=== PATIENT | male | born 1960 | race Caucasian/White ===

== ENCOUNTER 2016-03-24 10:38 | Inpatient (IN) | payer MEDICARE, MEDICAID ==
[2016-03-24] MEDS ORDERED: ONDANSETRON 4 MG/2 ML VIAL IVP STA (11:04)
[2016-03-24] MEDS ORDERED: SODIUM CHLORIDE 0.9% 500 ML IV STA (11:04)
[2016-03-24] MEDS ORDERED: SODIUM CHLORIDE 0.9% 1,000 ML IV STA ×2 (11:04)
--- NOTE | 2016-03-24 11:24 | ED ---
General Adult HPI - General Source: patient, RN notes reviewed, old records reviewed Mode of arrival: ambulatory Limitations: no limitations <Amadou Guaman - Last Filed: 03/24/16 13:04> <Wilfred Morse - Last Filed: 03/24/16 18:31> - General Chief complaint: Psychiatric Symptoms Stated complaint: Weakness/Numbness rt side Time Seen by Provider: 03/24/16 10:43 - History of Present Illness Initial comments: This is a 55-year-old male coming in for evaluation. Patient brought in for evaluation of seeing things. Patient having delusions. He states he sees a CAT sometimes threes at home. Patient denies taking alcohol, denies drug abuse , denies any other complaints (Amadou Guaman) - Related Data Home Medications Medication Instructions Recorded Confirmed Albuterol Sulfate [Proair Hfa] 2 puff INHALATION RT-Q4H PRN 03/24/16 03/24/16 Fluticasone Nasal [place] [Flonase 1 spray EA NOSTRIL DAILY PRN 03/24/16 03/24/16 Nasal [place]] HYDROcodone/APAP 7.5-325MG [[place] 1 tab PO Q4H PRN 03/24/16 03/24/16 7.5-325] Ibuprofen [Motrin] 800 mg PO TID PRN 03/24/16 03/24/16 QUEtiapine [SEROquel] 100 mg PO BID 03/24/16 03/24/16 Ranitidine HCl [Zantac] 150 mg PO BID 03/24/16 03/24/16 clonazePAM [KlonoPIN] 0.5 mg PO BID PRN 03/24/16 03/24/16 clonazePAM [KlonoPIN] 1 mg PO BID 03/24/16 03/24/16 lamoTRIgine [LaMICtal] 150 mg PO BID 03/24/16 03/24/16 Allergies Allergy/AdvReac Type Severity Reaction Status Date / Time No Known Allergies Allergy Verified 03/24/16 10:44 Review of Systems ROS Other: All systems not noted in ROS Statement are negative. <Amadou Guaman - Last Filed: 03/24/16 13:04> ROS Other: All systems not noted in ROS Statement are negative. <Wilfred Morse - Last Filed: 03/24/16 18:31> ROS Statement: Those systems with pertinent positive or pertinent negative responses have been documented in the HPI. Past Medical History Past Medical History: No Reported History History of Any Multi-Drug Resistant Organisms: None Reported Past Surgical History: No Surgical Hx Reported, Orthopedic Surgery Additional Past Surgical History / Comment(s): elbow BL Past Psychological History: Depression, PTSD Smoking Status: Current every day smoker Past Alcohol Use History: None Reported Past Drug Use History: None Reported <Amadou Guaman - Last Filed: 03/24/16 13:04> General Exam Limitations: no limitations General appearance: alert, in no apparent distress, appears intoxicated Head exam: Present: atraumatic, normocephalic, normal inspection Eye exam: Present: normal appearance, PERRL, EOMI. Absent: scleral icterus, conjunctival injection, periorbital swelling ENT exam: Present: normal exam, mucous membranes moist Neck exam: Present: normal inspection. Absent: tenderness, meningismus, lymphadenopathy Respiratory exam: Present: normal lung sounds bilaterally. Absent: respiratory distress, wheezes, rales, rhonchi, stridor Cardiovascular Exam: Present: regular rate, normal rhythm, normal heart sounds. Absent: systolic murmur, diastolic murmur, rubs, gallop, clicks GI/Abdominal exam: Present: soft, normal bowel sounds. Absent: distended, tenderness, guarding, rebound, rigid Extremities exam: Present: normal inspection, full ROM, normal capillary refill. Absent: tenderness, pedal edema, joint swelling, calf tenderness Back exam: Present: normal inspection Neurological exam: Present: alert, oriented X3, CN II-XII intact Psychiatric exam: Present: normal affect, normal mood Skin exam: Present: warm, dry, intact, normal color. Absent: rash <Amadou Guaman - Last Filed: 03/24/16 13:04> Course <Amadou Guaman - Last Filed: 03/24/16 13:04> <Wilfred Morse - Last Filed: 03/24/16 18:31> Vital Signs 03/24/16 03/24/16 10:44 12:57 Temperature 97.3 F L Pulse Rate 96 90 Respiratory 17 18 Rate Blood Pressure 133/88 153/68 O2 Sat by Pulse 95 95 Oximetry - Reevaluation(s) Reevaluation #1: 03/24/16 13:04 Patient is intoxicated (Amadou Guaman) EKG Findings - EKG Comments: EKG Findings:: EKG shows sinus tachycardia rate 101, IL 170, QRS, QTC 443 <Amadou Guaman - Last Filed: 03/24/16 13:04> Medical Decision Making - Lab Data Result diagrams: 03/24/16 11:15 03/24/16 11:15 <Amadou Guaman - Last Filed: 03/24/16 13:04> - Lab Data Result diagrams: 03/24/16 11:15 03/24/16 11:15 <Wilfred Morse - Last Filed: 03/24/16 18:31> - Medical Decision Making The patient was evaluated by psychiatric service she'll be admitted for inpatient treatment for depression NOS (Wilfred Morse) - Lab Data Lab Results 03/24/16 03/24/16 03/24/16 Range/Units 11:15 11:15 11:15 WBC 4.6 (3.8-10.6) k/uL RBC 3.48 L (4.30-5.90) m/uL Hgb 12.3 L (13.0-17.5) gm/dL Hct 36.5 L (39.0-53.0) % MCV 104.9 H (80.0-100.0) fL MCH 35.3 H (25.0-35.0) pg MCHC 33.6 (31.0-37.0) g/dL RDW 13.8 (11.5-15.5) % Plt Count 172 (150-450) k/uL Neutrophils % 61 % Lymphocytes % 27 % Monocytes % 9 % Eosinophils % 1 % Basophils % 1 % Neutrophils # 2.8 (1.3-7.7) k/uL Lymphocytes # 1.2 (1.0-4.8) k/uL Monocytes # 0.4 (0-1.0) k/uL Eosinophils # 0.1 (0-0.7) k/uL Basophils # 0.1 (0-0.2) k/uL Macrocytosis Slight PT (9.0-12.0) sec INR (<1.1) APTT (22.0-30.0) sec Sodium 140 (137-145) mmol/L Potassium 4.2 (3.5-5.1) mmol/L Chloride 102 (98-107) mmol/L Carbon Dioxide 23 (22-30) mmol/L Anion Gap 15 mmol/L BUN 10 (9-20) mg/dL Creatinine 1.08 (0.66-1.25) mg/dL Est GFR (MDRD) Af Amer >60 (>60 ml/min/1.73 sqM) Est GFR (MDRD) Non-Af >60 (>60 ml/min/1.73 sqM) Glucose 104 H (74-99) mg/dL Calcium 9.2 (8.4-10.2) mg/dL Phosphorus 3.3 (2.5-4.5) mg/dL Magnesium 1.5 L (1.6-2.3) mg/dL Total Bilirubin 0.9 (0.2-1.3) mg/dL AST 87 H (17-59) U/L ALT 61 (21-72) U/L Alkaline Phosphatase 108 (38-126) U/L Total Creatine Kinase 262 H (55-170) U/L CK-MB (CK-2) 2.7 H* (0.0-2.4) ng/mL CK-MB (CK-2) Rel Index 1.0 Troponin I <0.012 (0.000-0.034) ng/mL Total Protein 7.5 (6.3-8.2) g/dL Albumin 4.0 (3.5-5.0) g/dL Urine Color Urine Appearance (Clear) Urine pH (5.0-8.0) Ur Specific [place] (1.001-1.035) Urine Protein (Negative) Urine Glucose (UA) (Negative) Urine Ketones (Negative) Urine Blood (Negative) Urine Nitrate (Negative) Urine Bilirubin (Negative) Urine Urobilinogen (<2.0) mg/dL Ur Leukocyte Esterase (Negative) Urine Opiates Screen (NotDetected) Ur Oxycodone Screen (NotDetected) Urine Methadone Screen (NotDetected) Ur Propoxyphene Screen (NotDetected) Ur Barbiturates Screen (NotDetected) U Tricyclic Antidepress (NotDetected) Ur Phencyclidine Scrn (NotDetected) Ur Amphetamines Screen (NotDetected) U Methamphetamines Scrn (NotDetected) U Benzodiazepines Scrn (NotDetected) Urine Cocaine Screen (NotDetected) U Marijuana (THC) Screen (NotDetected) Serum Alcohol 168 mg/dL 03/24/16 03/24/16 03/24/16 Range/Units 11:15 14:15 14:15 WBC (3.8-10.6) k/uL RBC (4.30-5.90) m/uL Hgb (13.0-17.5) gm/dL Hct (39.0-53.0) % MCV (80.0-100.0) fL MCH (25.0-35.0) pg MCHC (31.0-37.0) g/dL RDW (11.5-15.5) % Plt Count (150-450) k/uL Neutrophils % % Lymphocytes % % Monocytes % % Eosinophils % % Basophils % % Neutrophils # (1.3-7.7) k/uL Lymphocytes # (1.0-4.8) k/uL Monocytes # (0-1.0) k/uL Eosinophils # (0-0.7) k/uL Basophils # (0-0.2) k/uL Macrocytosis PT 11.9 (9.0-12.0) sec INR 1.2 (<1.1) APTT 26.7 (22.0-30.0) sec Sodium (137-145) mmol/L Potassium (3.5-5.1) mmol/L Chloride (98-107) mmol/L Carbon Dioxide (22-30) mmol/L Anion Gap mmol/L BUN (9-20) mg/dL Creatinine (0.66-1.25) mg/dL Est GFR (MDRD) Af Amer (>60 ml/min/1.73 sqM) Est GFR (MDRD) Non-Af (>60 ml/min/1.73 sqM) Glucose (74-99) mg/dL Calcium (8.4-10.2) mg/dL Phosphorus (2.5-4.5) mg/dL Magnesium (1.6-2.3) mg/dL Total Bilirubin (0.2-1.3) mg/dL AST (17-59) U/L ALT (21-72) U/L Alkaline Phosphatase (38-126) U/L Total Creatine Kinase (55-170) U/L CK-MB (CK-2) (0.0-2.4) ng/mL CK-MB (CK-2) Rel Index Troponin I (0.000-0.034) ng/mL Total Protein (6.3-8.2) g/dL Albumin (3.5-5.0) g/dL Urine Color Yellow Urine Appearance Clear (Clear) Urine pH 5.0 (5.0-8.0) Ur Specific [place] 1.005 (1.001-1.035) Urine Protein Negative (Negative) Urine Glucose (UA) Negative (Negative) Urine Ketones Negative (Negative) Urine Blood Negative (Negative) Urine Nitrate Negative (Negative) Urine Bilirubin Negative (Negative) Urine Urobilinogen <2.0 (<2.0) mg/dL Ur Leukocyte Esterase Negative (Negative) Urine Opiates Screen Detected H (NotDetected) Ur Oxycodone Screen Not Detected (NotDetected) Urine Methadone Screen Not Detected (NotDetected) Ur Propoxyphene Screen Not Detected (NotDetected) Ur Barbiturates Screen Not Detected (NotDetected) U Tricyclic Antidepress Detected H (NotDetected) Ur Phencyclidine Scrn Not Detected (NotDetected) Ur Amphetamines Screen Not Detected (NotDetected) U Methamphetamines Scrn Not Detected (NotDetected) U Benzodiazepines Scrn Not Detected (NotDetected) Urine Cocaine Screen Not Detected (NotDetected) U Marijuana (THC) Screen Not Detected (NotDetected) Serum Alcohol mg/dL Disposition <Amadou Guaman - Last Filed: 03/24/16 13:04> <Wilfred Morse - Last Filed: 03/24/16 18:31> Clinical Impression: Depression Disposition: TRANSFER TO PSYCH HOSP/UNIT Condition: Stable
[2016-03-24 11:37] LABS: Basophils # (A) 0.1 k/uL (0-0.2); Basophils % (A) 1 %; CH 35.5; Eosinophils # (A) 0.1 k/uL (0-0.7); Eosinophils % (A) 1 %; HCT 36.5 % (39.0-53.0); HDW 2.36; HGB 12.3 gm/dL (13.0-17.5); Luc # (Auto) 0.09; Luc % (Auto) 2; Lymphocytes # (A) 1.2 k/uL (1.0-4.8); Lymphocytes % (A) 27 %; MCH 35.3 pg (25.0-35.0); MCHC 33.6 g/dL (31.0-37.0); MCV 104.9 fL (80.0-100.0); Macrocytosis Slight; Mean Platelet Volume 7.9; Monocytes # (A) 0.4 k/uL (0-1.0); Monocytes % (A) 9 %; Neutrophils # (A) 2.8 k/uL (1.3-7.7); Neutrophils % (A) 61 %; RBC 3.48 m/uL (4.30-5.90); RDW 13.8 % (11.5-15.5); WBC 4.6 k/uL (3.8-10.6); WBC (Perox) 4.63
--- NOTE | 2016-03-24 11:40 | CT ---
EXAMINATION TYPE: CT brain wo con DATE OF EXAM: 03/24/2016 11:35 AM COMPARISON: 09/05/2009 HISTORY: Weakness CT DLP: 1029.90 mGycm Automated exposure control for dose reduction was used. FINDINGS: There is no acute intracranial hemorrhage, mass effect, or midline shift identified. The ventricles and sulci are consistent with [id number] degenerative change. Periventricular low attenuation i s nonspecific but most typical remote microvascular ischemia. Changes of chronic sinusitis noted. IMPRESSION: No acute intracranial hemorrhage, mass effect, or midline shift is seen.
[2016-03-24 11:41] LABS: INR 1.2 (<1.1)
[2016-03-24 11:42] LABS: Partial Thromboplastin Time 26.7 sec (22.0-30.0); Prothrombin Time 11.9 sec (9.0-12.0)
[2016-03-24 11:43] LABS: ALT 61 U/L (21-72); AST 87 U/L (17-59); Alkaline Phosphatase 108 U/L (38-126); Anion Gap 15 mmol/L; Blood Urea Nitrogen 10 mg/dL (9-20); Calcium 9.2 mg/dL (8.4-10.2); Carbon Dioxide 23 mmol/L (22-30); Chloride 102 mmol/L (98-107); Glucose 104 mg/dL (74-99); Magnesium 1.5 mg/dL (1.6-2.3); Non-African American GFR(MDRD) >60 (>60 ml/min/1.73 sqM); Phosphorous 3.3 mg/dL (2.5-4.5); Potassium 4.2 mmol/L (3.5-5.1); Sodium 140 mmol/L (137-145); Total Bilirubin 0.9 mg/dL (0.2-1.3); Total Protein 7.5 g/dL (6.3-8.2)
[2016-03-24 11:46] LABS: Alcohol 168 mg/dL
[2016-03-24 11:50] LABS: Creatine Kinase 262 U/L (55-170)
[2016-03-24] MEDS ORDERED: FOLIC ACID 1 MG TAB PO STA (12:01)
[2016-03-24] MEDS ORDERED: THIAMINE 100 MG/ML 2 ML VIAL IVPB STA (12:01)
[2016-03-24] MEDS ORDERED: MAGNESIUM OXIDE 400 MG TAB PO STA (12:01)
[2016-03-24 12:03] LABS: Troponin I <0.012 ng/mL (0.000-0.034)
[2016-03-24 12:07] LABS: Creatine Kinase MB 2.7 ng/mL (0.0-2.4)
[2016-03-24 14:38] LABS: Appearance,Urine Clear (Clear); Bilirubin,Urine Negative (Negative); Glucose,Urine (UA) Negative (Negative); Ketones,Urine Negative (Negative); Leukocyte Esterase,Urine Negative (Negative); Nitrite,Urine Negative (Negative); Protein,Urine Negative (Negative); Specific Gravity,Urine 1.005 (1.001-1.035); UA Billing (MACRO vs. MICRO) CHEM; Urobilinogen,Urine <2.0 mg/dL (<2.0)
[2016-03-24] MEDS ORDERED: NICOTINE 21MG/24HR PATCH TRANSDERM STA (15:06)
[2016-03-24] MEDS ORDERED: clonazePAM 1 MG TAB PO STA (15:06)
[2016-03-24] MEDS ORDERED: HYDROcodone/APAP 7.5-325MG 1 EACH TAB PO PRN (19:08)
[2016-03-24] MEDS ORDERED: IBUPROFEN 800 MG TAB PO PRN (19:08)
[2016-03-24] MEDS ORDERED: ZIPRASIDONE 20 MG VIAL IM PRN (19:21)
[2016-03-24] MEDS ORDERED: ACETAMINOPHEN TAB 325 MG TAB PO PRN (19:21)
[2016-03-24] MEDS ORDERED: MAGNESIUM HYDROXIDE 2,400 MG/10 ML CUP PO PRN (19:21)
[2016-03-24] MEDS ORDERED: LORazepam 2 MG/ML SYRINGE IM PRN (19:32)
[2016-03-24] MEDS: FAMOTIDINE 20 MG TAB PO SCH (21:17)
[2016-03-24] MEDS: LORazepam 1 MG TAB PO PRN (21:17)
[2016-03-24] MEDS: lamoTRIgine 100 MG TAB PO SCH (21:19)
[2016-03-25] MEDS: LORazepam 1 MG TAB PO PRN ×2 (06:18→11:09)
[2016-03-25] MEDS ORDERED: ONDANSETRON ODT 4 MG TAB PO PRN (09:02)
[2016-03-25] MEDS: GABAPENTIN 100 MG CAP PO SCH ×4 (09:31→22:01)
[2016-03-25] MEDS: lamoTRIgine 100 MG TAB PO SCH ×3 (09:31→21:59)
[2016-03-25] MEDS: NICOTINE 21MG/24HR PATCH TRANSDERM SCH ×2 (09:31→10:57)
[2016-03-25] MEDS: FAMOTIDINE 20 MG TAB PO SCH ×3 (09:31→21:59)
[2016-03-25] MEDS: ALBUTEROL INHALER 60 PUFF/8 GM INHALER INHALATION PRN ×2 (10:57→20:57)
[2016-03-25] MEDS: THIAMINE 100 MG TAB PO SCH (13:10)
[2016-03-25] MEDS ORDERED: cloNIDine HCL 0.1 MG TAB PO PRN (13:39)
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
[2016-03-25] MEDS: clonazePAM 0.5 MG TAB PO SCH (22:00)
[2016-03-25] MEDS: MIRTAZAPINE 15 MG TAB PO SCH (22:01)
[2016-03-26] MEDS: ALBUTEROL INHALER 60 PUFF/8 GM INHALER INHALATION PRN ×3 (09:20→20:51)
[2016-03-26] MEDS: GABAPENTIN 100 MG CAP PO SCH (09:54)
[2016-03-26] MEDS: clonazePAM 0.5 MG TAB PO SCH ×2 (09:54→20:49)
[2016-03-26] MEDS: FAMOTIDINE 20 MG TAB PO SCH ×2 (09:54→20:50)
[2016-03-26] MEDS: lamoTRIgine 100 MG TAB PO SCH ×2 (09:54→20:50)
[2016-03-26] MEDS: NICOTINE 21MG/24HR PATCH TRANSDERM SCH (09:54)
[2016-03-26] MEDS: cloNIDine HCL 0.1 MG TAB PO PRN ×2 (09:55→20:51)
[2016-03-26] MEDS: FLUTICASONE 50MCG/SPRAY NASAL 16GM EA NOSTRIL PRN (10:05)
[2016-03-26] MEDS: THIAMINE 100 MG TAB PO SCH (12:20)
[2016-03-26] MEDS: LORazepam 1 MG TAB PO PRN ×2 (12:21→16:22)
--- NOTE | 2016-03-26 13:02 | P.PN ---
Subjective SUBJECTIVE: Patient endorses:high anxiety,some confusion ,difficulty sustaining attention , does not seem to listen when spoken to directly as I have to repeat myself more than once,reports "ALWAYS HYPER AND I CAN NOT SEAT STILL FOR LONG TIME",he stated that he was misusing RX for Klonopin and Hydrocodone and "I never told my Doctor that I was drinking",still endorsing withdrawal symptoms:psychomotor agitation,tremor ,increase heart rate,tactile hallucinations He reports that he slept with Remeron and his appetite is improving,denies any manic features but he said "I am easy agitated ,I do not want to be treated as a kid"discussed with him his misperception and cognitive distortion MENTAL STATUS EXAM: Patient is casually dressed ,grooming is adequate ,restless ,speech is rapid , at times circumstantial but easy to redirect ,alert and oriented to place , person but to today date ,endorses some tactile hallucination ,denies visual or auditory hallucination ,some paranoia and irritability ,endorses depression and anxiety but denies any current suicidal or homicidal ideation ASSESSMENT:Patient is still going through withdrawal symptom ,has anxiety , depression and irritability PLAN:1) Continue detox. protocol ,increase Neurontin 2) Continue Remeron ,will consider adding low dose of Risperdal if tactile hallucination will not subside in 24 hours 3) Encourage participation in milieu and groups therapy Objective - Vital Signs Vital signs: Vital Signs Temp 97.9 F 03/26/16 06:44 Pulse 106 H 03/26/16 12:23 Resp 20 03/26/16 12:23 BP 139/99 03/26/16 12:23 Pulse Ox 97 03/24/16 18:31 - Labs CBC & Chem 7: 03/24/16 11:15 03/24/16 11:15
[2016-03-26] MEDS ORDERED: HYDROcodone/APAP 7.5-325MG 1 EACH TAB PO PRN (13:04)
--- NOTE | 2016-03-26 14:02 | P.CONS ---
History of Present Illness - Reason for Consult Consult date: 03/25/16 Medical management - History of Present Illness This is a 55-year-old male. His primary care physician is Dr. Sheppard. He has a past history of seasonal ALLERGIES, possible asthma, depression, PTSD , tobacco use and dependence. He gives history that he has been drinking too much and it was out of control and he came in here so that he could stop drinking. He states he has been in [facility] along time ago for alcohol abuse and was sober for a number of years. He states his son when his son wasn't 18 from a boating accident and he initially started smoking at that time because he wasn't drinking but eventually returned to drinking. He states he drinks 8 beers per day plus a shot of liquor. He denies any street drug use. He denies history of hypertension but blood pressures have been running high for which Catapres was added this morning and will be increased. Patient presented to [facility] emergency center for psychiatric evaluation. He apparently was seen things and having delusions. His initial serum alcohol level was 168. Urine drug screen was positive for opiates and tricyclic antidepressants. Patient has been admitted to the mental health unit. Review of Systems All systems: negative Constitutional: Denies chills, Denies fever Eyes: denies blurred vision, denies pain Ears, nose, mouth and throat: Denies headache, Denies sore throat Cardiovascular: Denies chest pain, Denies shortness of breath Respiratory: Denies cough Gastrointestinal: Denies abdominal pain, Denies diarrhea, Denies nausea, Denies vomiting Musculoskeletal: Denies myalgias Integumentary: Denies pruritus, Denies rash Neurological: Denies numbness, Denies weakness Psychiatric: Reports depression, Reports hopelessness, Denies anxiety Endocrine: Denies fatigue, Denies weight change Past Medical History Past Medical History: No Reported History Additional Past Medical History / Comment(s): Seasonal ALLERGIES, possible asthma or COPD History of Any Multi-Drug Resistant Organisms: None Reported Past Surgical History: No Surgical Hx Reported, Orthopedic Surgery Additional Past Surgical History / Comment(s): elbow BL Past Psychological History: Depression, PTSD Smoking Status: Current every day smoker Past Alcohol Use History: None Reported Additional Past Alcohol Use History / Comment(s): Patient is a smoker of three- quarter pack per day. He drinks 8 beers plus a shot of liquor per day. He denies any medical marijuana use. He did use marijuana and quit 10 years ago. He denies any other street drug use. Past Drug Use History: None Reported - Past Family History Father Additional Family Medical History / Comment(s): Father is 81 years of age with history of 4 vessel CABG, colon cancer and another type of cancer he does not know the name Mother Additional Family Medical History / Comment(s): Mother at age 38 from breast cancer. Brother(s) Additional Family Medical History / Comment(s): He has 4 brothers with no major medical problems. Patient does not have any sisters. Son(s) Additional Family Medical History / Comment(s): Patient had 2 sons and one at age 18 from a boating accident. Second son is age 29 with no major medical problems. Patient has one daughter age 31 with no major medical problems. Medications and Allergies Home Medications Medication Instructions Recorded Confirmed Type Albuterol Sulfate [Proair Hfa] 2 puff INHALATION RT-Q4H PRN 03/24/16 03/24/16 History Fluticasone Nasal [place] [Flonase 1 spray EA NOSTRIL DAILY PRN 03/24/16 03/24/16 History Nasal [place]] HYDROcodone/APAP 7.5-325MG [[place] 1 tab PO Q4H PRN 03/24/16 03/24/16 History 7.5-325] Ibuprofen [Motrin] 800 mg PO TID PRN 03/24/16 03/24/16 History QUEtiapine [SEROquel] 100 mg PO BID 03/24/16 03/24/16 History Ranitidine HCl [Zantac] 150 mg PO BID 03/24/16 03/24/16 History clonazePAM [KlonoPIN] 0.5 mg PO BID PRN 03/24/16 03/24/16 History clonazePAM [KlonoPIN] 1 mg PO BID 03/24/16 03/24/16 History lamoTRIgine [LaMICtal] 150 mg PO BID 03/24/16 03/24/16 History Allergies Allergy/AdvReac Type Severity Reaction Status Date / Time No Known Allergies Allergy Verified 03/24/16 10:44 Physical Exam Vitals: Vital Signs Temp Pulse Pulse Resp BP BP Pulse Ox 03/25/16 11:15 108 H 16 171/95 03/25/16 07:16 97 16 189/90 03/25/16 06:34 98.3 F 96 16 192/94 03/24/16 19:02 97.9 F 98 18 154/83 03/24/16 18:31 99 F 89 18 150/60 97 Intake and Output 03/24/16 03/25/16 03/25/16 22:59 06:59 14:59 Other: Weight 85.275 kg Gen: This is a 55-year-old male. He is cooperative and appears to be in no acute distress. HEENT: Head is atraumatic, normocephalic. Pupils equal, round. Sclerae is anicteric. NECK: Supple. No JVD. No lymphadenopathy. No thyromegaly. LUNGS: Clear to auscultation. No wheezes or rhonchi. No intercostal retractions. HEART: Regular rate and rhythm. No murmur. ABDOMEN: Soft. Bowel sounds are present. No masses. No tenderness. EXTREMITIES: No pedal edema. No calf tenderness. NEUROLOGICAL: Patient is awake, alert and oriented x3. Cranial nerves 2 through 12 are grossly intact. Results CBC & Chem 7: 03/24/16 11:15 03/24/16 11:15 Assessment and Plan Plan: 1. Depression with alcohol abuse. Patient admitted to the mental health unit. Continue current plan of care. 2. Tobacco use and dependence. Continue nicotine patch. 3. History of possible asthma or possible COPD. Continue albuterol inhaler. 4. Seasonal ALLERGIES. Continue Flonase. 5. Hypertension most likely due to alcohol withdrawal. Catapres increased to 0.2 mg 3 times daily.. Impression and plan of care have been directed as dictated by the signing physician. Marie Lamas nurse practitioner acting as scribe for signing physician. Time with Patient: Greater than 30
[2016-03-26] MEDS: GABAPENTIN 300 MG CAP PO SCH ×2 (16:22→20:50)
[2016-03-26] MEDS: MIRTAZAPINE 15 MG TAB PO SCH (20:50)
[2016-03-27] MEDS: NICOTINE 21MG/24HR PATCH TRANSDERM SCH (08:29)
[2016-03-27] MEDS: GABAPENTIN 300 MG CAP PO SCH ×3 (08:29→20:36)
[2016-03-27] MEDS: FLUTICASONE 50MCG/SPRAY NASAL 16GM EA NOSTRIL PRN (08:29)
[2016-03-27] MEDS: lamoTRIgine 100 MG TAB PO SCH ×2 (08:30→20:30)
[2016-03-27] MEDS: clonazePAM 0.5 MG TAB PO SCH ×2 (08:30→20:32)
[2016-03-27] MEDS: FAMOTIDINE 20 MG TAB PO SCH ×2 (08:30→20:31)
[2016-03-27] MEDS: THIAMINE 100 MG TAB PO SCH (12:03)
[2016-03-27] MEDS: LORazepam 1 MG TAB PO PRN (12:04)
--- NOTE | 2016-03-27 12:41 | P.PN ---
Subjective SUBJECTIVE: Patient is somatic preoccupied ,ruminating about his Blood Pressure saying " I might need higher dose of Klonopin ",he stated that when he was incarcerated for 9 months he was taking 1 mg Klonopin twice a day ,we discussed his extensive history of alcohol and Benzodiazepine "I was on Valium for years then my Doctor changed to Klonopin "discussed lethal interaction between Alcohol and Klonopin ,patient said "I am aware of it but I told you yesterday that I will not drink again" Patient denies any sleeping or appetite problem,denies any current hallucination or any withdrawal symptom PER NURSING STAFF:He received Catapress and Ativan for high Blood Pressure ,no aggressive behavior ,compliant with oral medications MENTAL STATUS EXAM: Patient is casually dressed ,grooming is adequate ,restless ,speech is rapid , at times circumstantial but easy to redirect ,alert and oriented to place , person and today date , ,denies any hallucination , denies any current suicidal or homicidal ideation,his insight is improving PLAN: Continue current medications ,encourage groups participation ,will be seen daily to monitor any withdrawal symptoms and assess for suicidal ideation Objective - Vital Signs Vital signs: Vital Signs Temp 98.3 F 03/27/16 06:29 Pulse 75 03/27/16 06:29 Resp 16 03/27/16 06:29 BP 129/77 03/27/16 06:29 Pulse Ox 97 03/24/16 18:31 - Labs CBC & Chem 7: 03/24/16 11:15 03/24/16 11:15
[2016-03-27] MEDS: cloNIDine HCL 0.1 MG TAB PO PRN (20:31)
[2016-03-27] MEDS: MIRTAZAPINE 15 MG TAB PO SCH (20:31)
[2016-03-27] MEDS: MAG HYDROX/AL HYDROX/SIMETH 30 ML CUP PO PRN (22:05)
[2016-03-28] MEDS: MAG HYDROX/AL HYDROX/SIMETH 30 ML CUP PO PRN (06:06)
[2016-03-28] MEDS: lamoTRIgine 100 MG TAB PO SCH ×2 (08:09→20:58)
[2016-03-28] MEDS: NICOTINE 21MG/24HR PATCH TRANSDERM SCH (08:09)
[2016-03-28] MEDS: GABAPENTIN 300 MG CAP PO SCH ×3 (08:10→20:58)
[2016-03-28] MEDS: clonazePAM 0.5 MG TAB PO SCH ×2 (08:10→20:58)
[2016-03-28] MEDS: FAMOTIDINE 20 MG TAB PO SCH ×2 (08:10→20:59)
[2016-03-28] MEDS: ALBUTEROL INHALER 60 PUFF/8 GM INHALER INHALATION PRN ×2 (10:00→21:05)
[2016-03-28] MEDS: FLUTICASONE 50MCG/SPRAY NASAL 16GM EA NOSTRIL PRN (11:04)
[2016-03-28] MEDS: THIAMINE 100 MG TAB PO SCH (12:31)
[2016-03-28] MEDS: cloNIDine HCL 0.1 MG TAB PO PRN (15:40)
--- NOTE | 2016-03-28 17:52 | PN ---
DATE OF SERVICE : 03/28/2016 CHIEF COMPLAINT: The patient was admitted for depression and anxiety with suicidal thinking. He was functioning poorly. He had significant increase in alcohol use. He has had a diagnosis of bipolar disorder. INTERVAL HISTORY: Patient has been doing fair. He had a quiet evening last night. He has been attending groups. He has been an active participant. He slept fairly well last night. Today he has been up and about. He continues to be followed for withdrawal issues. His CIWA has been up, has fluctuated with one rating of 8 this a.m. Yesterday, his scores were low in the 0 to 2 range. His last vital signs included a BP 163/90, pulse 91 and regular at 1540. Temperature this morning was 98. His blood pressure has been up and down. He had a high blood pressure yesterday evening of 2030 of 199/95 with a pulse of 109. His mood has improved. He has a better outlook. He feels that he has been making progress. He is cooperative with care. He has not had problems with his medications. He tolerates his psychotropic medications. MENTAL STATUS: Patient was in the day area. He gave good eye contact. Psychomotor activity and speech were normal. His thoughts were clear. He was spontaneous and interactive. His affect was in a reasonable range. His mood was quiet. He did not appear to be significantly distressed. ASSESSMENT: I will continue the current diagnosis and treatment plan. I will discontinue p.r.n. Ativan. The patient is beyond a point of risk for immediate detox issues. He is beyond the range of risk for DTs. His blood pressure has been elevated most likely on the basis of his longer-term alcohol use . I will start the patient on clonidine 0.2 mg twice a day to address issues of hypertension as well as to potentially reduce withdrawal symptoms. I will discuss with the patient the penitentiary risks of continuing on Klonopin. We will continue Remeron 15 mg at bedtime and Lamictal 150 mg twice a day. I will discuss with the patient the risks for ongoing use of Klonopin as it relates to his substance dependence. The treatment plan is to aim for discharge early in the week. QUETA
[2016-03-28] MEDS: cloNIDine HCL 0.2 MG TAB PO SCH (20:58)
[2016-03-28] MEDS: MIRTAZAPINE 15 MG TAB PO SCH (20:58)
[2016-03-29] MEDS: cloNIDine HCL 0.2 MG TAB PO SCH ×2 (08:18→21:01)
[2016-03-29] MEDS: clonazePAM 0.5 MG TAB PO SCH ×2 (08:18→21:01)
[2016-03-29] MEDS: FAMOTIDINE 20 MG TAB PO SCH ×2 (08:18→21:03)
[2016-03-29] MEDS: GABAPENTIN 300 MG CAP PO SCH ×3 (08:18→21:01)
[2016-03-29] MEDS: NICOTINE 21MG/24HR PATCH TRANSDERM SCH (08:19)
[2016-03-29] MEDS: lamoTRIgine 100 MG TAB PO SCH ×2 (08:19→21:02)
[2016-03-29] MEDS: THIAMINE 100 MG TAB PO SCH (08:19)
[2016-03-29] MEDS: MAG HYDROX/AL HYDROX/SIMETH 30 ML CUP PO PRN (08:41)
[2016-03-29] MEDS: ALBUTEROL INHALER 60 PUFF/8 GM INHALER INHALATION PRN ×2 (11:06→21:19)
[2016-03-29] MEDS: MIRTAZAPINE 15 MG TAB PO SCH (21:01)
[2016-03-30] MEDS: MAG HYDROX/AL HYDROX/SIMETH 30 ML CUP PO PRN ×2 (00:46→04:47)
[2016-03-30 06:11] VITALS: TEMP 97.6
[2016-03-30] MEDS: cloNIDine HCL 0.2 MG TAB PO SCH (08:29)
[2016-03-30] MEDS: FAMOTIDINE 20 MG TAB PO SCH (08:29)
[2016-03-30] MEDS: clonazePAM 0.5 MG TAB PO SCH (08:29)
[2016-03-30] MEDS: GABAPENTIN 300 MG CAP PO SCH (08:29)
[2016-03-30] MEDS: lamoTRIgine 100 MG TAB PO SCH (08:29)
[2016-03-30 08:33] VITALS: BP 130/76; PULSE 94; RESP 18
--- NOTE | 2016-03-30 09:12 | PN ---
DATE OF SERVICE: 03/29/2016 INTERVAL HISTORY: Patient has been doing fairly well. He had a quiet evening last night. He gets himself around the unit. He attends groups. He seems to be showing improvement in his mood. He has not had significant withdrawal issues. He slept fairly well last night. Today he has been up and about. He is appropriate in his manner, he has been doing well in groups. He contributes. He seems to make a good effort. He CIWA score has been low. His vital signs have been stable. He has shown no signs of alcohol withdrawal. He has not had change in his general health. He tolerates his psychotropic medications. MENTAL STATUS: Patient was in the day area. He gave good eye contact. Psychomotor activity and speech were normal. Thoughts were clear. He was spontaneous and interactive. His affect was in a reasonable range. His mood was even. He did not appear to be distressed. ASSESSMENT: I will continue the current diagnosis and treatment plan. I will continue psychotropic medications the same. I discussed some discharge planning issues with the patient. I suggested based on Dr. Blackburn's progress notes, that I would anticipate discharge early in the week.
[2016-03-30] MEDS ORDERED: clonazePAM 0.5 MG TAB PO PRN (09:17)
[2016-03-30] MEDS: ALBUTEROL INHALER 60 PUFF/8 GM INHALER INHALATION PRN (09:26)
[2016-03-30] MEDS: NICOTINE 21MG/24HR PATCH TRANSDERM SCH (10:13)
--- NOTE | 2016-03-31 10:56 | DS ---
DATE OF ADMISSION: 03/24/2016 DATE OF DISCHARGE: 03/30/2016 Consult physician: Routine. Consulting provider: Shayan Lamas. REASON FOR CONSULTATION: Medical management. MUSEUM EDUCATOR: Consulting provider already was notified. DISCHARGE DIAGNOSIS(ES): 1. Major depression disorder, recurrent, in early remission. 2. Alcohol use disorder continuous. 3. 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 4. Anxiety disorder by history. For a brief summary of admission notes please refer to my initial psychiatric evaluation. The patient was admitted to the mental health unit from the emergency room as he presented with depression anxiety and suicidal ideation in addition to alcohol intoxication. Patient was experiencing visual hallucinations. For further history and physical examination please refer to the ED physician report. SUMMARY OF THE HOSPITAL COURSE: The patient was admitted to the mental health unit on voluntary basis. Once he was admitted to the mental unit, he was started on CIWA protocol for alcohol detox. In addition, I did discuss with him his home medication that was including hydrocodone and Klonopin 1 mg twice a day as schedule in addition to Klonopin 0.5 twice a day p.r.n. Patient did admit that he has been misusing this prescription and he did realize that it is habit-forming and he did agree to discontinue all the substance control prescription. Patient was started on mirtazapine for depression, anxiety, and also to improve his sleep and appetite. In addition to Neurontin for anxiety and to help alcohol withdrawal. Patient was running with high blood pressure even after we finished the CIWA protocol and we did have to start him on Catapres 0.2 twice a day as scheduled. Blood pressure was stable for the last 2 days on Catapres. Patient was very receptive to not taking any habit-forming medication and he was taking Motrin 800 3 times a day as needed for back pain. Patient was participating in group therapy activity therapy and ( ) the session. I did discuss with him inpatient substance rehab but he was very reluctant, but he did agree to go to AA meeting on a daily basis. Patient was able to tolerate medication without any side effects and he has been doing fairly well. He seems to be showing improvement in his mood and even in his insight regarding his addiction. His vital signs have been stable and there is no sign of alcohol withdrawal or for benzodiazepine withdrawal. Mental status examination at the time of the discharge: Patient is casually dressed, fair grooming. He gave good eye contact. Speech is normal. At times circumstantial but easy to direct. Thought process was clear and spontaneous. Affect is "much better". He denied any suicidal or homicidal ideation. He does not feel hopeless. There is no evidence of hypomania or yara. There is no evidence of psychosis and it seems that visual hallucination was related to his alcohol and Klonopin misuse. His insight and judgment are improving. Patient is alert and oriented to person, place and today's date. There is no verbal or physical aggression. Patient will be discharged from the mental health unit today to return home. Patient will continue on: 1. Lamictal or lamotrigine 150 mg twice a day for history of pseudoseizures. 2. Mirtazapine 15 mg at bedtime for depression and he was given one-month supply. 3. Neurontin 300 mg 3 times a day for anxiety and alcoholism. 4. I did discuss with him to abstain completely from opium pain medication. 5. In addition, I did give him only 7 tablets of Klonopin 0.5 mg to use it as needed. 6. Patient also was given prescription for Catapres 0.2 twice a day for blood pressure. 7. Patient did not require any p.r.n. Ativan for the last 48 hours. Patient was instructed to abstain completely from alcohol. I did discuss with him close addiction, and he was very receptive and did verbalize understanding. Patient will follow-up with his primary care physician Dr. Sheppard regarding medical management of his high blood pressure and his COPD. Patient will be referred to [facility] for dual diagnosis treatment. Patient does not have any access to firearms and he is not eminent to hurt himself or hurt others and he is safe and appropriate for transition back to the outpatient care. Patient was instructed to return back to the emergency room if any acute safety concerns return.
== END 2016-03-30 12:07 | disposition home or self-care (01) | DRG 885 ==
LOC: EC 10:38 → 3MHU 18:30
PROVIDERS: ADMIT Psychiatry & Neurology Psychiatry; ATTEND Psychiatry & Neurology Psychiatry
DX: F33.2 Major depressive disorder, recurrent severe without psychotic features (principal); R45.851 Suicidal ideations; F10.239 Alcohol dependence with withdrawal, unspecified; F39 Unspecified mood [affective] disorder; F13.10 Sedative, hypnotic or anxiolytic abuse, uncomplicated; F17.200 Nicotine dependence, unspecified, uncomplicated; F43.10 Post-traumatic stress disorder, unspecified; J44.9 Chronic obstructive pulmonary disease, unspecified; F41.9 Anxiety disorder, unspecified; Z65.3 Problems related to other legal circumstances; Z91.19 Patient's noncompliance with other medical treatment and regimen; Z79.899 Other long term (current) drug therapy; Y90.6 Blood alcohol level of 120-199 mg/100 ml
CPT/HCPCS: 36415; 70450; 80053; 80306; 80320; 81003; 82075; 82550; 82553; 83735; 84100; 84443; 84484; 85025; 85610; 85730; 87086; 93005; 94640; 96361; 96374; 99285